=== PATIENT | female | born 1965 | race Two or more races ===

== ENCOUNTER → 2025-03-21 | Outpatient (CLI) | payer MEDICAID, SELFPAY ==
--- NOTE | 2025-03-21 08:30 | XR_ITS ---
Examination: Breast ultrasound, unilateral, left Date and time of exam: March 21, 2025 0841 hours INDICATIONS: Left breast pain 3 months Technique: Real-time miles scale ultrasonographic imaging performed left breast including all 4 quadrants as well as nipple retroareolar and axillary region. Findings: 3:00 cyst 4 x 4 millimeter 4:00 nodule lobular margins 7 x 10 mm IMPRESSION: BI-RADS Category 3: Probably benign findings One additional 6 month left breast sonogram follow-up is needed to document stability of 4:00 nodule described above
--- NOTE | 2025-03-21 09:00 | XR_ITS ---
Examination: Diagnostic digital mammography, bilateral Computer aided detection 3-D breast Tomosynthesis, bilateral Date and time of exam: March 21, 2025 0905 hours INDICATIONS: Left breast pain 5-6 months, 4 mm nodule outer lower left breast on mammogram January 04, 2024 Technique: Nonmagnified MLO, CC views of the breasts to been obtained, reconstructed from 3-D Tomosynthesis images. R2 computer aided detection program utilized for evaluation of suspicious masses and/or abnormal calcifications. 3-D Tomosynthesis images obtained. Findings: Scattered areas of fibroglandular density Nodule outer left breast and retroareolar nodule stable in appearance compared with January 04, 2024 Impression: BI-RADS Category 2: Benign findings Recommend yearly follow-up mammography
== END | disposition home or self-care (01) ==
PROVIDERS: Referring Provider Nurse Practitioner Family; Visit Provider Nurse Practitioner Family
DX: R92.323 Mammographic fibroglandular density, bilateral breasts (principal); N63.23 Unspecified lump in the left breast, lower outer quadrant
CPT/HCPCS: 76641; 77062; 77066; G0279